=== PATIENT | male | born 1975 | race African-American/Black ===

== ENCOUNTER 2018-05-30 14:07 | Emergency (ER) | payer OTHER, MEDICAID ==
[2018-05-30] MEDS: IV NORMAL SALINE 1000ML BAG 1,000 ML IV (15:36)
[2018-05-30] MEDS: ONDANSETRON PF 4 MG/2 ML VIAL. IV (15:36)
[2018-05-30 15:37] LABS: ADD MAN DIFF? NO
[2018-05-30 15:39] LABS: BASO # 0.1 x10^3/uL (0.0-0.2); BASO % 1 % (0-3); EOS # 0.1 x10^3/uL (0.0-0.7); EOS % 2 % (0-3); HEMATOCRIT 35.6 % (39.0-53.0); HEMOGLOBIN 11.8 g/dL (13.0-17.5); LYMPH # 1.5 x10^3/uL (1.0-4.8); LYMPH % 29 % (24-48); MEAN CORPUSCULAR HEMOGLOBIN 27 pg (25-35); MEAN CORPUSCULAR HGB CONC 33 g/dL (31-37); MEAN CORPUSCULAR VOLUME 83 fL (79-100); MONO # 0.3 x10^3/uL (0.0-1.1); MONO % 6 % (0-9); NEUT # 3.3 x10^3uL (1.8-7.7); NEUT % 62 % (31-73); PLATELET COUNT 216 x10^3/uL (140-400); RED CELL DISTRIBUTION WIDTH 13.9 % (11.5-14.5); WHITE BLOOD COUNT 5.3 x10^3/uL (4.0-11.0)
[2018-05-30] MEDS: fentaNYL PF VIAL 100 MCG/2 ML VIAL IV (15:39)
[2018-05-30 15:50] LABS: INR 1.1 (0.8-1.1); PARTIAL THROMBOPLASTIN TIME 32 SEC (24-38); PROTHROMBIN TIME PATIENT 13.4 SEC (11.7-14.0)
[2018-05-30 15:54] LABS: ANION GAP 9 (6-14); BLOOD UREA NITROGEN 13 mg/dL (8-26); BUN/CREATININE RATIO 13 (6-20); CALCIUM 8.8 mg/dL (8.5-10.1); CARBON DIOXIDE 25 mmol/L (21-32); CHLORIDE 105 mmol/L (98-107); GFR 98.7; GLUCOSE 100 mg/dL (70-99); POTASSIUM 3.8 mmol/L (3.5-5.1); SODIUM 139 mmol/L (136-145)
[2018-05-30 15:59] LABS: ALBUMIN 3.9 g/dL (3.4-5.0); ALK PHOS 65 U/L (46-116); ALT (SGPT) 25 U/L (16-63); AST (SGOT) 11 U/L (15-37); LIPASE 160 U/L (73-393); TOTAL BILIRUBIN 0.4 mg/dL (0.2-1.0); TOTAL PROTEIN 7.8 g/dL (6.4-8.2)
[2018-05-30] MEDS ORDERED: CONTRAST GIVEN. MC (16:30)
[2018-05-30] MEDS: IOHEXOL 300 MG/ML 100ML VIAL. IV (16:39)
[2018-05-30 17:02] LABS: BILIRUBIN,URINE NEGATIVE (NEG); CLARITY,URINE CLEAR; COLOR,URINE YELLOW; GLUCOSE,URINE NEGATIVE (NEG); NITRITE,URINE NEGATIVE (NEG); PROTEIN,URINE NEGATIVE (NEG-TRACE)
[2018-05-30 17:09] LABS: BACTERIA,URINE FEW /HPF (0-FEW); RBC,URINE 0 /HPF (0-2); SQUAMOUS EPITHELIAL CELL,UR OCC /LPF
== END 2018-05-30 17:50 | disposition home or self-care (01) ==
LOC: ER 14:07
DX: K40.90 Unilateral inguinal hernia, without obstruction or gangrene, not specified as recurrent (principal)
CPT/HCPCS: 36415; 74177; 80053; 81001; 83690; 85025; 85610; 85730; 96374; 96375; 99285-25; J2405; J3010; J7030; Q9967